=== PATIENT | female | born 1945 | race Caucasian/White ===

== ENCOUNTER 2017-02-06 14:44 | Outpatient (CLI) | payer MEDICARE, OTHER ==
--- NOTE | 2017-02-07 07:33 | Mammography Report ---
DIGITAL BILATERAL SCREENING MAMMOGRAM: 02/06/2017 CLINICAL HISTORY: A 71-year-old female who has had no prior breast surgeries and who has no family h istory of breast cancer. COMPARISON: 06/30/2014, 05/23/2013, 12/31/2010, 10/24/2009, 10/24/2007, 03/22/2006. TECHNIQUE: Craniocaudad and oblique lateral views of each breast were obtained with [facility] [facility] digital mammography. Axillary exaggerated craniocaudad view of each breast was obtained to compli ment the examination. FINDINGS: Mildly heterogeneously dense breasts are noted. No significant clusters of calcification are seen. No significant masses are noted. No change is seen. IMPRESSION: THE BREASTS APPEAR RADIOGRAPHICALLY BENIGN. BIRADS CATEGORY 1 - NEGATIVE. RECOMMENDATIONS: Annual bilateral screening mammography. STANDARD QUALIFYING STATEMENTS 1. This examination was reviewed with the aid of Computer-Aided Detection (CAD). 2. A negative or benign imaging report should not delay biopsy if clinically suspicious findings are present. Consider surgical consultation if warranted. More than 5% of cancers are not identified by i maging. 3. Dense breasts may obscure an underlying neoplasm. JOB #: [id number] EXT JOB #:[id number]
== END 2017-02-06 14:45 | disposition home or self-care (01) ==
LOC: DI.S 14:44
PROVIDERS: ATTEND Physician Assistant
DX: Z12.31 Encounter for screening mammogram for malignant neoplasm of breast (principal)
CPT/HCPCS: 77067

== ENCOUNTER 2020-05-31 08:48 | Outpatient (CLI) | payer MEDICARE, OTHER ==
--- NOTE | 2020-06-01 16:19 | Mammography Report ---
BILATERAL DIGITAL SCREENING MAMMOGRAM 3D/2D: 05/31/2020 CLINICAL: Routine screening. Comparison is made to exams dated: 02/06/2017 mammogram, 06/30/2014 mammogram, 05/23/2013 mammogram, mammogram, and 10/24/2009 mammogram - [facility]. There are scattered fibro glandular elements in both breasts. No significant masses, calcifications, or other findings are seen in either breast. There has been no significant interval change. IMPRESSION: NEGATIVE There is no mammographic evidence of malignancy. A 1 year screening mammogram is recommended. This exam was interpreted at Station ID: [id number]. NOTE: For mammograms, a report in lay terms will be sent to the patient. Approximately 15% of breast malignancies will not be visualized mammographically. In the management of a palpable breast mass, a negative mammogram must not discourage biopsy of a clinically suspicious lesion. Electronically Signed By: Tonja morales/carlton:05/31/2020 16:31:27 ACR BI-RADS Category 1: Negative 3341F PARENCHYMAL PATTERN: (A) - The breast(s) demonstrate(s) scattered fibroglandular densities. BI-RADS CATEGORY: (1) - 1 RECOMMENDATION: (ANNUAL) - Recommend routine annual screening mammography. [id number] 1 year screening LATERALITY: (B)
== END 2020-05-31 08:49 | disposition home or self-care (01) ==
LOC: DI 08:48
DX: Z12.31 Encounter for screening mammogram for malignant neoplasm of breast (principal)
CPT/HCPCS: 77063; 77067

== ENCOUNTER 2022-01-26 07:40 | Outpatient (CLI) | payer MEDICARE, OTHER ==
--- NOTE | 2022-01-27 09:03 | Ultrasound Report ---
PROCEDURE: Retroperitoneal INDICATIONS: RECURRENT UTI TECHNIQUE: Real-time scanning was performed of the retroperitoneal organs, with image documentation. COMPARISON: None. FINDINGS: Kidneys: Simple cysts in the right kidney, one measuring 2.3 cm in the upper pole and another in the interpolar region measuring 3.0 cm. No hydronephrosis or shadowing renal calculus. No sonographic ev idence of solid or suspicious renal mass. Bladder: Pre-void bladder volume is 152 mL. Post-void residual is 28 mL. Pre-void images demonstra te no intraluminal masses or stones. On pre-void images, . ureteral jets are noted with color Dopple r interrogation. (Of note, ureteral jets may not be detectable in up to 25% of cases due to insuffic ient differences in specific gravity between ureteral and bladder urine). Miscellaneous: No free abdominal fluid. IMPRESSION: Small simple cysts in the right kidney which are almost certainly of no clinical significance. Otherw ise unremarkable study. Reviewed by: Maykel Murphy MD on 01/27/2022 9:02 AM PDT Approved by: Maykel Murphy MD on 01/27/2022 9:02 AM PDT Station ID: [id number]
== END 2022-01-26 07:41 | disposition home or self-care (01) ==
LOC: DI 07:40
PROVIDERS: ATTEND Nurse Practitioner Family
DX: N39.0 Urinary tract infection, site not specified (principal); N28.1 Cyst of kidney, acquired

== ENCOUNTER 2024-01-09 07:00 | Outpatient (CLI) | payer MEDICARE, OTHER ==
[2024-01-09 20:01] LABS: BILIRUBIN,URINE NEGATIVE (NEGATIVE); GLUCOSE, URINE (UA) NEGATIVE (NEGATIVE); KETONES,URINE (UA) NEGATIVE (NEGATIVE); LEUKOCYTE ESTERASE, URINE SMALL (NEGATIVE); NITRITE,URINE NEGATIVE (NEGATIVE); OCCULT BLOOD,URINE NEGATIVE (NEGATIVE); PH,URINE 5.5 PH (5.0-7.5); PROTEIN,URINE NEGATIVE (NEGATIVE); UROBILINOGEN,URINE 0.2 (NORMAL) E.U./dL (NORMAL)
[2024-01-09 20:03] LABS: CLARITY,URINE CLOUDY (CLEAR)
[2024-01-09 20:27] LABS: BACTERIA,URINE Many /HPF (None Seen); RBC,URINE 0-5 /HPF (0-5); SQUAMOUS EPITHELIAL CELL,UR NONE SEEN (<= Few)
== END 2024-01-09 23:59 | disposition home or self-care (01) ==
LOC: LAB.S 07:00
PROVIDERS: ATTEND Emergency Medicine
DX: R30.0 Dysuria (principal)
CPT/HCPCS: 81001; 87077; 87086; 87181